=== PATIENT | male | born 1985 | race Caucasian/White ===

== ENCOUNTER 2017-08-26 15:51 | Emergency (ER) | payer BC, OTHER ==
[2017-08-26] MEDS ORDERED: ALBUTEROL/IPRATROPIUM 1 VIAL SOL ONE (16:30)
[2017-08-26] MEDS ORDERED: ALBUTEROL/IPRATROPIUM 1 VIAL SOL INH ONE (16:35)
[2017-08-26 16:50] VITALS: TEMP 98
[2017-08-26 17:12] VITALS: BP 127/80; PULSE 87; RESP 16; O2SAT 100
== END 2017-08-26 17:09 | disposition home or self-care (01) | DRG 203 ==
LOC: ED 15:51
DX: J20.9 Acute bronchitis, unspecified (principal)
CPT/HCPCS: 99282; 99283; J7620

== ENCOUNTER 2017-11-01 01:31 | Emergency (ER) | payer OTHER ==
[2017-11-01 01:44] VITALS: RESP 16; TEMP 98.5
[2017-11-01] MEDS ORDERED: AMOXICILLIN 250 MG CAP PO ONE (01:58)
[2017-11-01] MEDS ORDERED: AMOXICILLIN 125/5 ML BOTTLE ONE (01:58)
[2017-11-01 02:16] VITALS: BP 145/94; PULSE 81; O2SAT 98
== END 2017-11-01 02:12 | disposition home or self-care (01) | DRG 153 ==
LOC: ED 01:31
DX: H65.191 Other acute nonsuppurative otitis media, right ear (principal)
CPT/HCPCS: 99282